=== PATIENT | male | born 1995 | race Caucasian/White ===

== ENCOUNTER → 2018-02-02 09:44 | Outpatient (CLI) | payer OTHER, SELFPAY ==
--- NOTE | 2018-02-02 09:53 | RAD_ITS ---
STUDY: X-RAY - LEFT KNEE REASON FOR EXAM: Male, 22 years old. Intermittent pain. TECHNIQUE: 3 view(s) of the knee. COMPARISON: None. FINDINGS: Normal visualized distal femur. Normal visualized proximal tibia and fibula. Normal proximal tibiofibular articulation. Normal medial femorotibial compartment. Normal lateral femorotibial compartment. Normal patellofemoral articulation. The soft tissue structures are unremarkable. RAD/Knee 3 Views IMPRESSION: Normal x-ray examination of the knee. Electronically Signed: Praveen Oliveira MD at 15:18 EDT Tel [phone], Service support ,
== END ==
PROVIDERS: Family Provider Nurse Practitioner Family; PCP Nurse Practitioner Family; Visit Provider Nurse Practitioner Family
DX: M25.562 Pain in left knee (principal)
CPT/HCPCS: 73562

== ENCOUNTER 2018-03-15 15:44 | Outpatient (RCR) | payer OTHER, SELFPAY ==
--- NOTE | 2018-03-15 16:23 | HP.PTEVAL ---
Patient's Visit Information THEO SALTER is a 22 year old M referred to Physical Therapy by Charla Machado DO with a diagnosis of Left Knee instability.. Date of Evaluation: 03/15/18 Physical Therapist: Katia Desai - Visit Plan Plan: Reviewed current gym program-Hold until MRI results - Subjective Subjective: Patient reports that he hurt it playing soccer a few months ago- non contact just felt it give out. Tried to play the week after tried to make a cut and felt a pop. Went to see the MD who told him no more soccer until MRI. 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 Hurts when he kneels and does full flexion. Tries to play indoor soccer each winter. Plan is to get an MRI and have PT give him exercises. Goes to 12/06 fitness-leg press, UE, squatting- abs- tries to get there 1-2x a week. Worst: 3/10 Agg: full knee bend, soccer, cutting, uneven surfaces. Still has popping, clicking sensation. Best: 0/10 Eases: nothing. Describes pain as sharp/shooting. Pain is on the meidl and lateral joint line right in the middle. No radiating pain- No N/T. Work boots- tennis shoes are not very supportive. PMHx: none Meds: Ibuprofen as needed - Objective Posture: good. Gait: no deviation noted with walking or running. Squat: slight shift to the right. HRTR:WNL. SLS: 30 sec without LOB or increased muscle activation. Stairs: no deviation. Palpation: not tender. ROM: 0-135 degrees. Strength: 5/5 throughout Core: good - Rehabilitation Potential Physical Therapy Diagnosis: Patient presents with increased pain with sports. Rehabilitation Potential: Good - Anticipated Interventions Thank you for the opportunity to evaluate your patient. For Medicare and Medicare HMO plans, please review the plan of care and approve it. It will need to be FAXED BACK to us at [phone] for Medicare purposes. Please let me know if there are questions or concerns regarding this plan of care. Physician Signature: Date:
--- NOTE | 2018-05-09 10:36 | HP.PT.NRP ---
HP - Discharge Summary (1) - Patient Information THEO SALTER was seen in my office for initial evaluation on 03/15/18. The following Plan of Care was established for this patient: This patient was last seen in our office . Pertinent comments regarding their Physical therapy will appear below: Patient had mri- will follow up with ortho- d/c at this time At this point I will be discontinuing this patient from physical therapy. I would be happy to see this patient again in the future if found appropriate by the physician. Thank you! Katia Desai
== END 2018-03-15 19:00 | disposition home or self-care (01) ==
LOC: PT 15:44
PROVIDERS: Family Provider Nurse Practitioner Family; PCP Nurse Practitioner Family; Visit Provider Orthopaedic Surgery
DX: M23.52 Chronic instability of knee, left knee (principal)
CPT/HCPCS: 97161

== ENCOUNTER → 2018-03-24 07:19 | Outpatient (CLI) | payer OTHER, SELFPAY ==
--- NOTE | 2018-03-24 07:20 | MRI_ITS ---
STUDY: MRI LEFT KNEE REASON FOR EXAM: Male, 22 years old. Weakness, instability TECHNIQUE: Standardized fat and water weighted pulse sequences were obtained in all 3 orthogonal planes. COMPARISON: X-ray 02/02/2018 FINDINGS: There is a small joint effusion (image 7/30 axial T2 fat sat). There is rupture of the anterior cruciate ligament (image 13/25 sagittal T2 fat sat). There is anterior translation of the tibia relative to the femur (image 34/44 sagittal proton density There is faint bone marrow edema at the lateral femoral condyle and posterolateral tibial plateau (image 20, 19, 18/25 sagittal T2 fat sat, 11, 12, 15/30 coronal T2 fat sat). There is slight thickening of the proximal aspect of the medial collateral ligament (image 17/30 coronal T2 fat sat). There is small focal undersurface tear at the posterior horn of the lateral meniscus (image 32/24 sagittal proton-density). Suggestion of partial peripheral tear at the posterior horn of the medial meniscus (image 5/25 sagittal T2 fat sat, 10, 11/24 sagittal proton density). Normal proximal tibiofibular articulation. Normal lateral collateral (fibular) ligament. Normal popliteus tendon. Normal biceps femoris tendon. Normal posterior cruciate ligament (PCL). Normal congruent patellofemoral articulation. Normal hyaline cartilage of the patellofemoral compartment. Normal medial and lateral patellar retinaculum. Normal quadriceps tendon. Normal patellar tendon. Normal Hoffa's fat pad. MRI/Lower Ext Joint Only (Routine) IMPRESSION: Subacute rupture of the anterior cruciate ligament with associated contusion at the lateral femoral condyle and posterolateral tibial plateau Small focal undersurface tear at the posterior horn of the lateral meniscus Suspicious for partial peripheral tear of the posterior horn of the medial meniscus. Medial collateral ligament sprain Small joint effusion Electronically Signed: Vishal Flowers MD at 10:05 EDT Tel , Service support ,
== END ==
PROVIDERS: Family Provider Nurse Practitioner Family; PCP Nurse Practitioner Family; Visit Provider Orthopaedic Surgery
DX: S83.512A Sprain of anterior cruciate ligament of left knee, initial encounter (principal)
CPT/HCPCS: 73721

== ENCOUNTER 2018-06-06 06:02 | Day surgery (SDC) | payer OTHER, SELFPAY ==
[2018-06-06] VITALS (7 sets, daily range): BP systolic 115–138; BP diastolic 45–70; PULSE 56–82; RESP 14–16; TEMP 36.5–36.8; O2SAT 98–100; BMI 22.5
[2018-06-06] MEDS: Cefazolin 2 GM in 0.9% Normal Saline 100 ML IV (07:26)
--- NOTE | 2018-06-06 07:36 | PCM.DC.ORTHO ---
Discharge Diet: No Restrictions - remove dressing in 5 days and apply clean dressing to incision sites, hinged knee brace 0-30 when seated, toe touch weight bearing for 6 weeks, brace locked in extension during ambulation and at night, ankle pumps, elevate toes above nose, ice; call with concerns Discharge Activity: May Not Drive May shower in (days): 1 Ice area for (Minutes): 20 - Every hour while awake. Weight Bearing Status: Weight bearing as tolerated Keep extremity elevated above heart level: Operative Extremity Call your doctor if your incision/area has: Continuous Slow Oozing, Sudden Increased Bleeding, Increased Pain/ Swelling, Increased Redness, Foul Smelling Discharge Call your doctor if you observe: Fever of 101 or Higher, Coldness, Increased Pain, Numbness or Tingling, Change in Color, Calf discomfort Allergies/Adverse Reactions: Allergies No Known Allergies Allergy (Verified 06/01/18 11:33) Medications to take at Discharge knee brace #1 ea 02/02/18 Ondansetron [Zofran] 8 mg PO Q8H PRN PRN #20 tab 06/06/18 Oxycodone HCl/Acetaminophen [Percocet 5/325] 1 - 2 tablet PO Q6H PRN PRN 5 Days #60 tablet 06/06/18 The following prescriptions were given: Oxycodone HCl/Acetaminophen [Percocet 5/325] 1 - 2 tablet PO Q6H PRN PRN 5 Days #60 tablet PRN Reason: Pain Ondansetron [Zofran] 8 mg PO Q8H PRN PRN #20 tab PRN Reason: Nausea Primary Care Physician: Jaspal Koo, [employer] [Primary Care Provider] - Test Results: Test results from this visit will be discussed in further detail at your follow-up appointment, if applicable. Please Follow Up With: Charla Machado, DO - [phone]
--- NOTE | 2018-06-06 07:38 | OP.PCM_ITS ---
Report of Operation Date of Procedure: 06/06/18 Pre-Operative Diagnosis: left knee lateral men tear, acl tear Post-Operative Diagnosis: same Surgery/Procedure Performed:: salk, lat men repair, acl recon with btb autograft Type of Anesthesia:: General/Regional Anesthesiologist: Alli Ng Drains: none Estimated Blood Loss (mL): 15cc Fluids Replaced: 1500cc lr Description of Procedure: Preop note Patient is a 22-year-old male who sustained an injury to his left knee possibly 4-5 months ago. Consistent instability regarding regardless of conservative treatment. Patient failed conservative treatment MRI confirms a lateral meniscus tear questionable medial meniscus tear as well as ACL tear. Risks benefits and alternatives surgery discussed with patient. Risks including but not limited to blood loss, blood clot, infection, neurovascular injury, failure procedure, loss of life and loss of limb. Patient is aware like proceed with left knee reconstruction with a bone patella bone autograft meniscus repair is indicated. Operative note Patient seen and examined preoperative holding area. Left knee was marked. Patient brought to the operating room placed supine on the operating table. Sign, anesthesia, antibiotics were administered. The left knee was prepped and draped in usual sterile fashion with a tourniquet around his upper thigh. Preoperative evaluation positive pivot shift as well as positive Valentine's and drawer anterior. We then all bony possible padded and SCDs placed on his contralateral limb. We then marked out our incision for our patella tendon graft retrieval. The left leg was elevated exsanguinated and pressure was raised to 250 torr. Timeout was performed. We then used a 15 blade cut through the skin from the inferior pole to the tibial tuberosity dissect down with tenotomies down to the level of the peritenon which was excised and we carefully excised off of the patella tendon we then measured 10 cm in the middle of the tendon in keeping the foot internally rotated to the tibial tubercle was placed North we then obtained a graft in standard fashion. We had about a 25 mm graft from the tibial tubercle and then 20 mm graft from the patella. We then prepared on the back table in standard sterile fashion. We then began our diagnostic arthroscopy. Patella femoral joint was intact and created a anterior medial portal under direct visualization ensuring that we could get a good placement of our femoral tunnel from the medial portal making as medial as possible. We then probed the medial meniscus which was intact and stable probing. The ACL was obviously torn in notch this was gently debrided with accommodation of a shaver and an ablator. We then created our found our that the there was a posterior horn of the lateral meniscus that was torn we gently rasped the posterior horn and placed two reverse curved FasT-Fix devices across the posterior horn and had good stable repair afterwards. We then moved back to the graft tunnel of the medial femoral side. We used a bur to enlarge the tunnel as we did not have enough he had a little bit of a narrow tunnel. We then drilled about 30 mm using a 10 reamer from the medial portal we then drilled the tibial tunnel just about 10 mm posterior to the PCL are anterior to the PCL. And we drilled up through the tibia using her coronary core reamer. We then prepared on the morselized the bone on the back table. We then brought the bone tendon bone autograft from the back table placed it through the tibial tunnel out through the femoral tunnel and place an 8 x 23 screw in the medial femoral condyle after notching and placing a guidewire. We had good stability of the graft we then moved to our tibial screw when extending the knee and pulling on tension on the graft we had a little bit of bone in the tunnel but a graft outside the tunnel as well sweep so placed our 8 x 20 screw in the tibial tunnel and then truncated the remaining distal portion of the bone plug and then used the sutures that were also passed to the bone plug through a Arthrex anchor that was drilled down into the medial tibial cortex. We had a negative Lockman at the end we had good stable fixation intra-articularly the ACL was intact stable probing. We then irrigated the knee with copious amounts of sterile saline the bone graft was placed in both the patella and as well as the tibial tubercle tuberosity tuberosity as well as we then closed the patella tendon with a running 3-0 Vicryl the peritenon with 3-0 Vicryl the skin with 3- 0 Vicryl and 2-0 Vicryl and running Monocryl stitch in the skin the portals were closed with interrupted 4-0 nylon stitches. Sterile dressings were applied patient was placed in a brace and was taken to the PACU in stable condition there are no comp occasions patient transferred unchanged tolerated procedure well. Patient received a postoperative regional block. Postoperative note Toe-touch weightbearing left leg 0-30 flex Follow-up in 2 weeks Prescriptions at Hospital pharmacy Regional again regional block done in PACU Call with increased pain numbness tingling further issues arise This note was generated with [employer] dictation software. It may contain incorrect words, spelling, and punctuation that were not noted in checking the note before signing.
[2018-06-06] MEDS: Mupirocin Ointment 22gm Tube 1 APPLIC (10:20)
[2018-06-06] MEDS: HYDROcodone Bitartrate/Apap 5/325 Tablet PO (12:42)
== END 2018-06-06 13:26 | disposition home or self-care (01) ==
LOC: SDC 06:03
PROVIDERS: Family Provider Nurse Practitioner Family; PCP Nurse Practitioner Family; Visit Provider Orthopaedic Surgery
PROC: (CPT 29881; principal; 2018-06-06 07:10)
DX: S83.282A Other tear of lateral meniscus, current injury, left knee, initial encounter (principal); S83.512A Sprain of anterior cruciate ligament of left knee, initial encounter; X58.XXXA Exposure to other specified factors, initial encounter; Y92.9 Unspecified place or not applicable
CPT/HCPCS: 29881; 29888; 64447; C1713; J7120; J2405

== ENCOUNTER → 2018-07-17 12:52 | Outpatient (CLI) | payer OTHER, SELFPAY | PROVIDERS: Family Provider Nurse Practitioner Family; PCP Nurse Practitioner Family; Visit Provider Orthopaedic Surgery | DX: M25.562 Pain in left knee (principal) | CPT/HCPCS: 73564 ==

== ENCOUNTER 2018-09-06 14:00 | Outpatient (RCR) | payer OTHER, SELFPAY ==
--- NOTE | 2018-06-21 16:01 | HP.PTEVAL_ITS ---
Patient's Visit Information THEO SALTER is a 22 year old M referred to Physical Therapy by Charla Machado DO with a diagnosis of S/P ACL reconstruction (BTB) with lateral meniscus repair. Date of Evaluation: 06/21/18 Physical Therapist: Juventino Ferraro PT, - Visit Plan Frequency: 1-2x /Week Duration: 2-4 Months Plan: Patient underwent s/p ACL reconstruction and lateral meniscus repair on . POST OP 3WEEKS. * Patient TTWB LLE UNTIL END June *BRACE LOCKED IN EXTENSION WITH GAIT. SEE PROTOCAL GUIDLINES ACL,AND MENISCUS REPAIR. PA - Subjective Subjective: This 22 y/o male presents to physical therapy with right ACL reconstruction (BTB), with lateral meniscus repair 06/06/[address] [facility] done by Dr Machado. Patient d/c same day with crutches with knee brace DON POOJA locked in extension when walking with NWB LE. 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 Seen Jeannette ,had MRI shown ACL tear.Patient had one session of PT. Patient has difficultly with ADL'S and unable return to work. Patient surgery impairs QOL and function. C/O parathesia/tingling lateral knee ,light touch intact.Patient seen 06/19/18 cont ith TTWB another month , brace locked when walking,unlocked with ex's 0-60 degrees. SOCIAL: single. 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 GAIT: ambulated with NWB LLE with brace locked in extension. SKIN: inscion well approximate ,sutures. EDEMA: 39.0 cm joint line left knee. ATROPHY QUAD: 6 above joint line 43.2 cm. QUAD SET: poor quads set. MMT: knee NT,hip 3+/5 ankle 4/5. AROM: 0-60 degrees. Patella MOBS : WFL min tight superior. FLEXABLITY hams min tight. HOMMANS: negative. PROPRIOCEPTION: absent - Goals Goal 1:: Independant with HEP Goal Time Frame: 8-12 Weeks Goal 2:: Patient to ambulate with normal karyna level on unlevel surfacess Goal Time Frame: 8-12 Weeks Goal 3:: Patient to improve AROM supine knee flexion left symmtrical to right to improve function. Goal 4:: Patient increase strength quad/hams/hip 4/5 to return to prior level of function Goal Time Frame: 8-12 Weeks Goal 5:: Patient to improve proprioception left to right and motor control return to jogging. Goal Time Frame: 8-12 Weeks Goal 6:: Patient return to prior level of activity and and sport simulated activity. Goal Time Frame: 8-12 Weeks - Rehabilitation Potential Physical Therapy Diagnosis: This patient underwent s/p ACL construction with BTB and lateral meniscus repair on 06/06/18 with NWB LLE with crutches ,poor quad set,ROM ,strength,mild edema thus benifit from skilled PT. Rehabilitation Potential: Good - Anticipated Interventions Patient/Client Instruction: Educate patient on: Condition, Plan of Care For the Purpose of:: To decrease pain, To increase ROM, To improve nutrient delivery to tissue, To increase oxygenation perfusion, To improve muscle performance and motor function, To improve ability to perform ADL's, To increase tolerance to activity/condition/position, To improve ability of physical actions for home/community/work/leisure, To improve gait and locomotor functions, To improve health of tissue, To decrease soft tissue restriction, To increase flexibility/ROM, To improve endurance, To improve balance, To improve safety with gait, To improve ability to perform tasks related to life management Therapeutic Exercise to Include: Strength training, Endurance training, Balance training, Flexibilty training, Gait and locomotor training, Passive ROM, Active ROM Comment: SEE PROTOCAL GUIDELINES ACL/MENISCUS REPAIR For the Purpose of:: To decrease pain, To increase ROM, To improve muscle performance and motor function, To improve ability to perform ADL's, To increase tolerance to activity/condition/position, To improve ability of physical actions for home/community/work/leisure, To improve gait and locomotor functions, To improve health of tissue, To decrease soft tissue restriction, To increase flexibility/ROM, To improve safety with gait, To assume or resume ADL's , To improve ability to perform tasks related to life management Functional Training to Include: Functional sports training, Gait training For the Purpose of:: To decrease pain, To increase ROM, To improve muscle performance and motor function, To improve ability to perform ADL's, To increase tolerance to activity/condition/position, To improve ability of physical actions for home/community/work/leisure, To improve gait and locomotor functions, To improve health of tissue, To decrease soft tissue restriction, To increase flexibility/ROM, To improve balance Functional electric stimulation: Yes IF ES: Yes Cryotherapy (ice pack, ice massage): Yes Thermo therapy (hot pack): Yes Vasopneumatic device: Yes For the Purpose of:: To decrease pain, To decrease swelling/inflammation, To increase ROM, To improve nutrient delivery to tissue, To increase oxygenation perfusion, To improve health of tissue, To decrease soft tissue restriction Thank you for the opportunity to evaluate your patient. For Medicare and Medicare HMO plans, please review the plan of care and approve it. It will need to be FAXED BACK to us at [phone] for Medicare purposes. Please let me know if there are questions or concerns regarding this plan of care. Physician Signature: Date:
--- NOTE | 2018-09-06 17:28 | HP.PTDCSUM ---
HP - PT D/C Summary It has been my pleasure to treat THEO SALTER under orders from Charla Machado DO, for the diagnosis of S/P ACL reconstruction (BTB) with lateral meniscus repair for a total of 16 visit(s). Discharge Date: Please see the following information for a summary of their discharge status. - Subjective Subjective: Doing great ..need to RTW. No pain. - Pain Left Knee Pain Intensity (Out of 10): 0 - Overall Improvement % Improvement: 80 - Objective Objective/Function: GAIT: normal karyna. AROM: 0-135 degrees supine flexion. MMT: QUADS4/5,HAMS 5/5,HIPO 4/5. PROPRIOCEPTION: intact/NEUROMUSCULAR CONTROL. QUAD 6 ABOVE JOINT LINE 44 CM -L,47 -R 93% - Goals Goal 1:: Independant with HEP Goal Progress: Goal Met Goal 2:: Patient to ambulate with normal karyna level on unlevel surfacess Goal Progress: Goal Met Goal 3:: Patient to improve AROM supine knee flexion left symmtrical to right to improve function. Goal Progress: Goal Met Goal 4:: Patient increase strength quad/hams/hip 4/5 to return to prior level of function Goal Progress: Goal Met Goal 5:: Patient to improve proprioception left to right and motor control return to jogging. Goal Progress: Goal Met Goal 6:: Patient return to prior level of activity and and sport simulated activity. - Plan Plan: d/c to HEP AND GYM - D/C Information If there are questions or concerns regarding this patient's physical therapy, please feel free to call me at [phone]. Thank you for the referral of this patient. Sincerely, Juventino Ferraro, PT,
== END 2018-09-06 19:00 | disposition home or self-care (01) ==
LOC: PT 14:00
PROVIDERS: Family Provider Nurse Practitioner Family; PCP Nurse Practitioner Family; Visit Provider Orthopaedic Surgery
DX: Z98.890 Other specified postprocedural states (principal)
CPT/HCPCS: 97014; 97110; 97161; G0283